=== PATIENT | female | born 1970 | race Caucasian/White ===

== ENCOUNTER 2025-02-14 01:31 | Day surgery (SDC) | payer OTHER, SELFPAY ==
[2025-02-10 11:55] VITALS: BMI 37.0
[2025-02-14 07:20] VITALS: BP 143/84; PULSE 86; RESP 18; TEMP 36.3; O2SAT 97; BMI 36.7
[2025-02-14 07:34] LABS: Glucose Point of Care 99 mg/dl (65-105)
[2025-02-14] MEDS: LACTATED RINGERS 1,000 ML 150 ML IV CONT (07:35)
--- NOTE | 2025-02-14 08:17 | PM.IMHP ---
H&P: HPI History of Present Illness Date/Time: 02/14/25 08:17 Chief Complaint: screening for colorectal cancer Narrative: this is a 54-year-old woman who presents for colonoscopy. She has a history of diverticulitis and had a colonoscopy about 5-10 years ago which was otherwise normal. She denies any family history of colon cancer. She denies any hematochezia or melena. Review of Systems Review of Systems: All systems reviewed & are unremarkable except as noted in HPI and below Constitutional: Constitutional: Denies chills, Denies fever(s), Denies headache(s) and Denies weight loss Eyes: Eyes: Denies change in vision ENT: Denies dizziness, Denies headache(s), Denies neck mass and Denies throat swelling Cardiovascular: Cardiovascular: Denies chest pain, Denies lightheadedness and Denies dyspnea Respiratory: Respiratory: Denies cough, Denies dyspnea and Denies wheezing Gastrointestinal: Gastrointestinal: Denies abdominal pain, Denies change in bowel habits, Denies nausea and Denies vomiting Genitourinary: Genitourinary: Denies hematuria and Denies dysuria Musculoskeletal: Musculoskeletal: Reports as per HPI Integumentary/Breasts: Skin/Breast: Reports as per HPI Neurologic: Denies dizziness and Denies headache(s) Allergic/Immunologic: Allergic/Immunologic: Denies throat swelling and Denies wheezing PMFSH Social History Social History Living arrangements: incarcerated Meds Home Medications and Allergies Home Medications Medication Instructions Recorded Confirmed Type acetaminophen 325 mg tablet 650 mg PO BID PRN pain 02/10/25 02/10/25 History acyclovir 400 mg tablet 400 mg PO BID 02/10/25 02/14/25 History albuterol 90 mcg/actuation aerosol 90 mcg inhalation QID PRN asthma 02/10/25 02/10/25 History inhaler aripiprazole 10 mg tablet (Abilify) 10 mg PO DAILY 02/10/25 02/14/25 History carvedilol 12.5 mg tablet 12.5 mg PO BID 02/10/25 02/14/25 History celecoxib 100 mg capsule (Celebrex) 100 mg PO BID 02/10/25 02/14/25 History diclofenac sodium 1 % topical gel 2 g topical BID PRN unknown 02/10/25 02/10/25 History (Arthritis Pain (diclofenac)) fluticasone 250 mcg-salmeterol 50 1 inh inhalation BID 02/10/25 02/14/25 History mcg/dose blistr powdr for inhalation hydrochlorothiazide 50 mg tablet 50 mg PO DAILY 02/10/25 02/14/25 History levothyroxine 50 mcg tablet 50 mcg PO DAILY 02/10/25 02/14/25 History (Synthroid) losartan 100 mg tablet (Cozaar) 100 mg PO DAILY 02/10/25 02/14/25 History metformin 500 mg tablet 500 mg PO BID 02/10/25 02/14/25 History semaglutide 2 mg/dose (8 mg/3 mL) 2 mg subcut WEEKLY 02/10/25 02/14/25 History subcutaneous pen injector (Ozempic) sennosides 8.6 mg tablet (senna) 8.6 mg PO BID PRN constipation 02/10/25 02/10/25 History tiotropium bromide 18 mcg capsule 1 cap inhalation DAILY 02/10/25 02/14/25 History with inhalation device (Spiriva with HandiHaler) trazodone 150 mg tablet 150 mg PO HS 02/10/25 02/14/25 History Allergies Allergy/AdvReac Type Severity Reaction Status Date / Time No Known Allergies Allergy Verified 02/14/25 07:19 Vital Signs Vital Signs - 24 hr 02/14/25 07:20 Temperature 97.4 F L Pulse Rate 86 Respiratory Rate 18 Blood Pressure 143/84 H Pulse Oximetry 97 Oxygen Delivery Room Air Exam Const: General: no acute distress and alert Orientation/consciousness: patient oriented x3 HENMT: Head: normocephalic and atraumatic Ears: hearing grossly normal bilaterally Face/Nose/Sinus: Normal nares present Mouth: Yes Normal oral and palatal mucosa present Eyes: Periorbital: periorbital findings normal Sclera: sclerae normal EOM: EOMs intact bilaterally Neck: Neck: normal visual inspection, no lymphadenopathy and trachea midline Chest: Chest palpation & inspection: normal inspection of the chest Resp: Effort & Inspection: normal respiratory effort Auscultation: clear to auscultation bilaterally Cardio: Jugular venous distension: no JVD Rate: regular rate Rhythm: regular rhythm Heart sounds: S1 normal heart sound present and S2 normal heart sound present Peripheral pulses: Peripheral pulses 2+ throughout GI: Inspection: normal to inspection GI Palp: Yes Soft to palpation, No Tenderness to palpation present (GI), No Guarding due to palpation present (GI) and No Rebound tenderness present Percussion: Yes normal to percussion Auscultation: normal bowel sounds : General: Yes no CVA tenderness Back/Spine/Pelvis: Back: no CVA tenderness Neuro: General: patient oriented x3, no focal motor deficits and CN's II-XI intact bilaterally Cognition (Neuro): normal cognition Speech: normal speech Motor exam (neuro): 5/5 motor strength present throughout Extrem: General: capillary refill normal and no clubbing, cyanosis or edema Assessment and Plan Assessment and plan (1) Screening for colorectal cancer: Code(s): Z12.11 - Encounter for screening for malignant neoplasm of colon; Z12.12 - Encounter for screening for malignant neoplasm of rectum Status: Acute Assessment and Plan: I have recommended colonoscopy. I have discussed the procedure, risks, benefits, and alternatives. Questions were answered. Patient is agreeable to proceed.
--- NOTE | 2025-02-14 08:19 | WPDANESEPPF ---
Anes - Initial Pre Proc Eval Procedure: Operation Date: 02/14/25 09:00 Proposed Procedures p Screening Colonoscopy - Nelson Wu DO Date/Time: 02/14/25 08:19 Surgeon: Nelson Wu DO Pre Op Diagnosis: Screening for malignant neoplasm of colon Patient Data Age: 54 Gender: F Height: 1.63 m Weight: 97 kg Last Vital Signs Temp 36.3 C L 02/14/25 07:20 Pulse 86 02/14/25 07:20 Resp 18 02/14/25 07:20 BP 143/84 H 02/14/25 07:20 Pulse Ox 97 02/14/25 07:20 O2 Del Method Room Air 02/14/25 07:20 Allergies Allergy/AdvReac Type Severity Reaction Status Date / Time No Known Allergies Allergy Verified 02/14/25 07:19 Home Medications Medication Instructions Recorded Confirmed Type acetaminophen 325 mg tablet 650 mg PO BID PRN pain 02/10/25 02/10/25 History acyclovir 400 mg tablet 400 mg PO BID 02/10/25 02/14/25 History albuterol 90 mcg/actuation aerosol 90 mcg inhalation QID PRN asthma 02/10/25 02/10/25 History inhaler aripiprazole 10 mg tablet (Abilify) 10 mg PO DAILY 02/10/25 02/14/25 History carvedilol 12.5 mg tablet 12.5 mg PO BID 02/10/25 02/14/25 History celecoxib 100 mg capsule (Celebrex) 100 mg PO BID 02/10/25 02/14/25 History diclofenac sodium 1 % topical gel 2 g topical BID PRN unknown 02/10/25 02/10/25 History (Arthritis Pain (diclofenac)) fluticasone 250 mcg-salmeterol 50 1 inh inhalation BID 02/10/25 02/14/25 History mcg/dose blistr powdr for inhalation hydrochlorothiazide 50 mg tablet 50 mg PO DAILY 02/10/25 02/14/25 History levothyroxine 50 mcg tablet 50 mcg PO DAILY 02/10/25 02/14/25 History (Synthroid) losartan 100 mg tablet (Cozaar) 100 mg PO DAILY 02/10/25 02/14/25 History metformin 500 mg tablet 500 mg PO BID 02/10/25 02/14/25 History semaglutide 2 mg/dose (8 mg/3 mL) 2 mg subcut WEEKLY 02/10/25 02/14/25 History subcutaneous pen injector (Ozempic) sennosides 8.6 mg tablet (senna) 8.6 mg PO BID PRN constipation 02/10/25 02/10/25 History tiotropium bromide 18 mcg capsule 1 cap inhalation DAILY 02/10/25 02/14/25 History with inhalation device (Spiriva with HandiHaler) trazodone 150 mg tablet 150 mg PO HS 02/10/25 02/14/25 History Laboratory Tests 02/14/25 07:31 POC Capillary Glucose 99 mg/dl (65-105) Patient hx anesthesia problems: none Family hx anesthesia problems: none Results Review: All pre-operative results and documents have been reviewed as part of the pre-operative evaluation. [facility] Past Medical History Medical History (Updated 02/14/25 @ 08:20 by Fabien Nelson MD) COPD (chronic obstructive pulmonary disease) Obesity Social History Social History Living arrangements: incarcerated Anes - Eval Final PreProcedure Day of Procedure 02/14/25 08:19 Patient weight: obese Heart: regular rate and rhythm Lungs: clear to auscultation Airway: Mallampati scale class II Neurological: alert and oriented Last oral intake: >/= 8 hours ASA classification: III Emergent: no Anesthetic plan: proceed Anesthesia type and monitoring: general GIVS and standard monitoring Results Review: All pre-operative results and documents have been reviewed as part of the pre-operative evaluation. Informed Consent: The patient's anesthetic plan and its attendant risks and benefits were discussed with the patient/family/POA. Questions were solicited and answers provided to the satisfaction of the patient/family/POA.
[2025-02-14 08:46] VITALS: BP 124/73; PULSE 83; RESP 16; O2SAT 97
[2025-02-14 08:56] VITALS: BP 123/77; PULSE 77; RESP 22; O2SAT 94
[2025-02-14 09:06] VITALS: BP 141/88; PULSE 74; RESP 19; O2SAT 96
== END 2025-02-14 09:09 | disposition home or self-care (01) ==
PROVIDERS: PCP Internal Medicine; Visit Provider Surgery
PROC: 0DJD8ZZ Inspection of Lower Intestinal Tract, Via Natural or Artificial Opening Endoscopic (ICD-10-PCS; CPT 45378; principal; 2025-02-14 09:00)
DX: Z12.11 Encounter for screening for malignant neoplasm of colon (principal); K57.30 Diverticulosis of large intestine without perforation or abscess without bleeding; E66.9 Obesity, unspecified; Z68.36 Body mass index [BMI] 36.0-36.9, adult; Z79.84 Long term (current) use of oral hypoglycemic drugs; Z79.85 Long-term (current) use of injectable non-insulin antidiabetic drugs
CPT/HCPCS: 45378; 82948; J2003; J2704; J7120